=== PATIENT | male | born 1955 | race Caucasian/White ===

== ENCOUNTER 2018-08-12 10:32 | Emergency (ER) | payer MEDICARE ==
[~2018-08-12] VITALS: Ht 175.3 cm; Wt 74.8 kg
[2018-08-12 11:10] LABS: BASOPHILS ABSOLUTE AUTO 0.04 K/mm3 (0.00-0.23); BASOPHILS PERCENT AUTO 0 % (0-2); EOSINOPHILS ABSOLUTE AUTO 0.04 K/mm3 (0.00-0.68); EOSINOPHILS PERCENT AUTO 0 % (0-6); Hematocrit 48.1 % (37.0-53.0); Hemoglobin 15.8 g/dL (13.5-17.5); IMMATURE GRAN ABSOLUTE AUTO 0.02 K/mm3 (0.00-0.10); IMMATURE GRAN PERCENT AUTO 0 % (0-1); LYMPHOCYTES ABSOLUTE AUTO 1.44 K/mm3 (0.84-5.20); LYMPHOCYTES PERCENT AUTO 16 % (21-46); MONOCYTES ABSOLUTE AUTO 0.65 K/mm3 (0.16-1.47); MONOCYTES PERCENT AUTO 7 % (4-13); Mean Corpuscular HGB 29.9 pg (26.0-34.0); Mean Corpuscular HGB Conc 32.8 g/dL (31.5-36.5); Mean Corpuscular Volume 91 fL (80-100); Mean Platelet Volume 10.3 fL (9.1-12.4); NEUTROPHILS ABSOLUTE AUTO 6.98 K/mm3 (1.96-9.15); NEUTROPHILS PERCENT AUTO 76 % (41-73); Platelet Count 230 K/mm3 (150-400); RDW Coefficient Variation 13.4 % (11.7-14.2); RDW Standard Deviation 45.2 fL (35.1-46.3); Red Blood Cell Count 5.29 M/mm3 (4.30-5.90); White Blood Cell Count 9.17 K/mm3 (4.00-11.30)
[2018-08-12 11:22] LABS: International Normalized Ratio 1.03; Prothrombin Time Results 10.6 Sec (9.7-11.5)
[2018-08-12 11:30] LABS: Alanine Aminotransfer (ALT/SGP 40 U/L (12-78); Albumin, Blood 4.1 g/dL (3.4-5.0); Alk Phos 32 U/L (50-136); Anion Gap 8 mmol/L (6-16); Aspartate Aminotrans (AST/SGOT 24 U/L (12-37); Bilirubin, Total 0.9 mg/dL (0.1-1.0); Blood Urea Nitrogen 15 mg/dL (8-24); Bun/Creatinine Ratio 13.3 (12.0-20.0); CO2, Blood 26 mmol/L (21-32); Calcium, Blood 8.8 mg/dL (8.5-10.1); Chloride, Blood 109 mmol/L (98-108); Creatinine, Blood 1.13 mg/dL (0.60-1.20); Glomerular Filtration Rate >60 (60-); Glucose, Blood 120 mg/dL (70-99); Potassium, Blood 3.8 mmol/L (3.5-5.5); Sodium, Blood 143 mmol/L (136-145); Total Protein, Blood 8.1 g/dL (6.4-8.2); Troponin I 0.022 ng/mL (0.000-0.040)
[2018-08-12] MEDS ORDERED: ATOR40TA PO (12:42)
[2018-08-12] MEDS ORDERED: Norvasc5 MG PO (12:42)
== END 2018-08-12 13:25 | disposition home or self-care (01) ==
LOC: ER 10:32
PROVIDERS: Emergency Medicine
DX: I63.9 Cerebral infarction, unspecified (principal); G81.94 Hemiplegia, unspecified affecting left nondominant side; Z79.899 Other long term (current) drug therapy
CPT/HCPCS: 70450; 80053; 84484; 85025; 85610; 85730; 93005; 93010; 99285-25

== ENCOUNTER 2020-12-08 04:30 | Emergency (ER) | payer MEDICARE ==
[~2020-12-08] VITALS: Ht 175.3 cm; Wt 77.1 kg
[~2020-12-08 04:30] MED LIST: ATOR40TA PO; Norvasc5 MG PO
[2020-12-08] MEDS ORDERED: PLAVIX75 MG PO (04:44)
[2020-12-08] MEDS ORDERED: Aspir 8181 MG PO (04:45)
[2020-12-08] MEDS ORDERED: FINA5 PO (04:45)
[2020-12-08 05:02] LABS: BASOPHILS ABSOLUTE AUTO 0.05 K/mm3 (0.00-0.23); BASOPHILS PERCENT AUTO 1 % (0-2); EOSINOPHILS ABSOLUTE AUTO 0.32 K/mm3 (0.00-0.68); EOSINOPHILS PERCENT AUTO 3 % (0-6); Hematocrit 45.8 % (37.0-53.0); Hemoglobin 15.3 g/dL (13.5-17.5); IMMATURE GRAN ABSOLUTE AUTO 0.02 K/mm3 (0.00-0.10); IMMATURE GRAN PERCENT AUTO 0 % (0-1); LYMPHOCYTES ABSOLUTE AUTO 2.21 K/mm3 (0.84-5.20); LYMPHOCYTES PERCENT AUTO 22 % (21-46); MONOCYTES ABSOLUTE AUTO 0.96 K/mm3 (0.16-1.47); MONOCYTES PERCENT AUTO 10 % (4-13); Mean Corpuscular HGB 29.8 pg (26.0-34.0); Mean Corpuscular HGB Conc 33.4 g/dL (31.5-36.5); Mean Corpuscular Volume 89 fL (80-100); Mean Platelet Volume 10.2 fL (9.1-12.4); NEUTROPHILS ABSOLUTE AUTO 6.29 K/mm3 (1.96-9.15); NEUTROPHILS PERCENT AUTO 64 % (41-73); Platelet Count 235 K/mm3 (150-400); RDW Coefficient Variation 13.1 % (11.7-14.2); RDW Standard Deviation 43.1 fL (35.1-46.3); Red Blood Cell Count 5.14 M/mm3 (4.30-5.90); White Blood Cell Count 9.85 K/mm3 (4.00-11.30)
[2020-12-08 05:19] LABS: Alanine Aminotransfer (ALT/SGP 20 U/L (12-78); Albumin/Globulin Ratio 1.1 (0.8-1.8); Alk Phos 35 U/L (50-136); Anion Gap 5 mmol/L (6-16); Aspartate Aminotrans (AST/SGOT 10 U/L (12-37); Bilirubin, Total 0.9 mg/dL (0.1-1.0); Blood Urea Nitrogen 19 mg/dL (8-24); Bun/Creatinine Ratio 16.2 (12.0-20.0); CO2, Blood 28 mmol/L (21-32); Calcium, Blood 9.4 mg/dL (8.5-10.1); Chloride, Blood 109 mmol/L (98-108); Creatinine, Blood 1.17 mg/dL (0.60-1.20); Globulin, Blood 3.6 g/dL (2.2-4.0); Glomerular Filtration Rate >60 (60-); Glucose, Blood 121 mg/dL (70-99); Sodium, Blood 142 mmol/L (136-145); Total Protein, Blood 7.6 g/dL (6.4-8.2)
[2020-12-08 05:38] LABS: Source, Urine Clean Catch
[2020-12-08 05:48] LABS: Appearance, Urine Clear (Clear); Bilirubin, Urine Neg (Neg); Blood, Urine 1+ (Neg); Color, Urine Yellow (P-Yellow); Glucose Qualitative, Urine Neg (Neg); Ketones, Urine Neg (Neg); Leukocyte Esterase, Urine Neg (Neg); Nitrite, Urine Neg (Neg); Protein, Urine Neg (Neg); Specific Gravity, Urine 1.015 (1.003-1.022); Urobilinogen, Urine NORM (Normal); pH, Urine 6.5 (5.0-8.0)
[2020-12-08 06:07] LABS: Bacteria Few /hpf; Hyaline Casts 0-2 /lpf (0-2); Red Blood Cells, Urine 0-2 /hpf (0-2); Squamous Epithelial Cells Few /hpf (Few)
[2020-12-09] MEDS ORDERED: HYDR1TAB94 PO (10:44)
== END 2020-12-08 06:37 | disposition home or self-care (01) ==
LOC: ER 04:30
PROVIDERS: Emergency Medicine
DX: R10.32 Left lower quadrant pain (principal); E78.00 Pure hypercholesterolemia, unspecified; Z79.02 Long term (current) use of antithrombotics/antiplatelets; Z79.82 Long term (current) use of aspirin; Z79.899 Other long term (current) drug therapy; Z86.73 Personal history of transient ischemic attack (TIA), and cerebral infarction without residual deficits
CPT/HCPCS: 36415; 74176; 80053; 81001; 85025; 96374; 99284-25; A9270; J1885; J7030

== ENCOUNTER 2020-12-09 10:13 | Emergency (ER) | payer OTHER, MEDICARE ==
[~2020-12-09] VITALS: Ht 175.3 cm; Wt 77.1 kg
[~2020-12-09 10:13] MED LIST changes: +Aspir 8181 MG PO; +FINA5 PO; +PLAVIX75 MG PO
[2020-12-09] MEDS ORDERED: HYDR1TAB94 PO (10:44)
== END 2020-12-09 11:12 | disposition home or self-care (01) ==
LOC: ER 10:13
DX: S39.013A Strain of muscle, fascia and tendon of pelvis, initial encounter (principal); Z79.02 Long term (current) use of antithrombotics/antiplatelets; W01.0XXA Fall on same level from slipping, tripping and stumbling without subsequent striking against object, initial encounter; E78.00 Pure hypercholesterolemia, unspecified; Z79.82 Long term (current) use of aspirin
CPT/HCPCS: 99281

== ENCOUNTER 2023-12-24 07:53 | Emergency (ER) | payer MEDICARE ==
[~2023-12-24] VITALS: Ht 175.3 cm; Wt 74.8 kg
[~2023-12-24 07:53] MED LIST changes: +HYDR1TAB94 PO
[2023-12-24 08:47] LABS: Source, Urine Clean Catch
[2023-12-24 08:51] LABS: Appearance, Urine Clear (Clear); Bilirubin, Urine Neg (Neg); Blood, Urine 3+ (Neg); Glucose Qualitative, Urine Neg (Neg); Ketones, Urine Neg (Neg); Leukocyte Esterase, Urine 1+ (Neg); Nitrite, Urine Neg (Neg); Protein, Urine 1+ (Neg); Specific Gravity, Urine 1.025 (1.003-1.022); Urobilinogen, Urine NORM (Normal)
[2023-12-24 08:59] LABS: Color, Urine Pale Yellow (P-Yellow)
[2023-12-24 09:00] LABS: Bacteria Few /hpf; Hyaline Casts 0-2 /lpf (0-2); Squamous Epithelial Cells Few /hpf (Few)
[2023-12-24 09:56] LABS: BASOPHILS ABSOLUTE AUTO 0.04 K/mm3 (0.00-0.23); BASOPHILS PERCENT AUTO 1 % (0-2); EOSINOPHILS ABSOLUTE AUTO 0.27 K/mm3 (0.00-0.68); EOSINOPHILS PERCENT AUTO 3 % (0-6); Hematocrit 49.4 % (37.0-53.0); Hemoglobin 16.4 g/dL (13.5-17.5); IMMATURE GRAN ABSOLUTE AUTO 0.01 K/mm3 (0.00-0.10); IMMATURE GRAN PERCENT AUTO 0 % (0-1); LYMPHOCYTES ABSOLUTE AUTO 2.03 K/mm3 (0.84-5.20); LYMPHOCYTES PERCENT AUTO 25 % (21-46); MONOCYTES ABSOLUTE AUTO 0.87 K/mm3 (0.16-1.47); MONOCYTES PERCENT AUTO 11 % (4-13); Mean Corpuscular HGB 30.3 pg (26.0-34.0); Mean Corpuscular HGB Conc 33.2 g/dL (31.5-36.5); Mean Corpuscular Volume 91 fL (80-100); Mean Platelet Volume 9.9 fL (9.1-12.4); NEUTROPHILS ABSOLUTE AUTO 4.82 K/mm3 (1.96-9.15); NEUTROPHILS PERCENT AUTO 60 % (41-73); Platelet Count 263 K/mm3 (150-400); RDW Coefficient Variation 13.3 % (11.7-14.2); RDW Standard Deviation 45.1 fL (35.1-46.3); Red Blood Cell Count 5.41 M/mm3 (4.30-5.90); White Blood Cell Count 8.04 K/mm3 (4.00-11.30)
[2023-12-24] MEDS ORDERED: FentaNYL Citrate 50 MCG/ML 2 ML Injection IV ONE (10:00)
[2023-12-24] MEDS ORDERED: Ondansetron HCl 2 MG / ML 2ML Vial IV ONE (10:00)
[2023-12-24 10:18] LABS: Albumin, Blood 4.1 g/dL (3.4-5.0); Albumin/Globulin Ratio 1.1 (0.8-1.8); Bilirubin, Total 0.9 mg/dL (0.1-1.0); Bun/Creatinine Ratio 14.6 (12.0-20.0); Calcium, Blood 9.3 mg/dL (8.5-10.1); Creatinine, Blood 1.03 mg/dL (0.60-1.20); Globulin, Blood 3.8 g/dL (2.2-4.0); Potassium, Blood 3.8 mmol/L (3.5-5.5); Total Protein, Blood 7.9 g/dL (6.4-8.2)
[2023-12-24] MEDS ORDERED: Flomax0.4 MG PO (10:43)
[2023-12-24] MEDS ORDERED: TAMS.4ER PO (11:55)
[2023-12-24] MEDS ORDERED: CEFP200 PO (11:55)
[2023-12-24 12:14] VITALS: BP 166/102
== END 2023-12-24 12:20 | disposition home or self-care (01) ==
LOC: ER 07:53
PROVIDERS: Emergency Medicine
DX: N40.1 Benign prostatic hyperplasia with lower urinary tract symptoms (principal); R33.8 Other retention of urine; N39.0 Urinary tract infection, site not specified; E78.00 Pure hypercholesterolemia, unspecified
CPT/HCPCS: 74177; 80053; 81001; 85025; 87086; 96374-59; 99284-25; J2405; J3010; Q9967

== ENCOUNTER 2023-12-31 07:11 | Emergency (ER) | payer MEDICARE ==
[~2023-12-31] VITALS: Ht 175.3 cm; Wt 76.2 kg
[~2023-12-31 07:11] MED LIST changes: +CEFP200 PO; +Flomax0.4 MG PO; +TAMS.4ER PO
[2023-12-31 08:21] LABS: Source, Urine Clean Catch
[2023-12-31] MEDS ORDERED: Ketorolac Tromethamine 30mg Vial IM ONE (08:25)
[2023-12-31 08:40] LABS: BASOPHILS ABSOLUTE AUTO 0.04 K/mm3 (0.00-0.23); BASOPHILS PERCENT AUTO 0 % (0-2); EOSINOPHILS ABSOLUTE AUTO 0.26 K/mm3 (0.00-0.68); EOSINOPHILS PERCENT AUTO 3 % (0-6); Hematocrit 48.4 % (37.0-53.0); Hemoglobin 15.7 g/dL (13.5-17.5); IMMATURE GRAN ABSOLUTE AUTO 0.03 K/mm3 (0.00-0.10); IMMATURE GRAN PERCENT AUTO 0 % (0-1); LYMPHOCYTES ABSOLUTE AUTO 1.85 K/mm3 (0.84-5.20); LYMPHOCYTES PERCENT AUTO 21 % (21-46); MONOCYTES ABSOLUTE AUTO 1.01 K/mm3 (0.16-1.47); MONOCYTES PERCENT AUTO 11 % (4-13); Mean Corpuscular HGB 29.4 pg (26.0-34.0); Mean Corpuscular HGB Conc 32.4 g/dL (31.5-36.5); Mean Corpuscular Volume 91 fL (80-100); Mean Platelet Volume 10.3 fL (9.1-12.4); NEUTROPHILS ABSOLUTE AUTO 5.71 K/mm3 (1.96-9.15); NEUTROPHILS PERCENT AUTO 64 % (41-73); Platelet Count 263 K/mm3 (150-400); RDW Coefficient Variation 13.2 % (11.7-14.2); Red Blood Cell Count 5.34 M/mm3 (4.30-5.90)
[2023-12-31 08:55] LABS: Bun/Creatinine Ratio 19.1 (12.0-20.0); Calcium, Blood 9.9 mg/dL (8.5-10.1); Potassium, Blood 4.1 mmol/L (3.5-5.5)
[2023-12-31 09:03] LABS: Appearance, Urine Clear (Clear); Blood, Urine 1+ (Neg); Glucose Qualitative, Urine Neg (Neg); Ketones, Urine Neg (Neg); Leukocyte Esterase, Urine Neg (Neg); Nitrite, Urine Pos (Neg); Protein, Urine 1+ (Neg); Urobilinogen, Urine 3+ (Normal); pH, Urine 6.5 (5.0-8.0)
[2023-12-31 09:17] LABS: Bilirubin, Urine 3+ (Neg)
[2023-12-31 09:18] LABS: Color, Urine Orange (P-Yellow)
[2023-12-31 09:20] LABS: Bacteria Rare /hpf; Squamous Epithelial Cells Rare /hpf (Few)
[2023-12-31] MEDS ORDERED: Percocet 5-3251 EACH PO (12:02)
[2023-12-31 13:50] VITALS: BP 169/103
== END 2023-12-31 13:50 | disposition home or self-care (01) ==
LOC: ER 07:11
PROVIDERS: Physician Assistant
DX: R10.31 Right lower quadrant pain (principal); Z79.899 Other long term (current) drug therapy; Z79.82 Long term (current) use of aspirin; E78.00 Pure hypercholesterolemia, unspecified
CPT/HCPCS: 36415; 76770; 76870; 80053; 81001; 83690; 85025; 96372; 99284-25; J1885